=== PATIENT | female | born 1940 | race Caucasian/White ===

== ENCOUNTER 2024-05-19 15:04 | Emergency (ER) | payer BC, SELFPAY ==
--- NOTE | ~2024-05-19 | CT_ITS ---
EXAMINATION: CT HEAD WITHOUT CONTRAST CT CERVICAL SPINE WITHOUT CONTRAST CT FACIAL BONES WITHOUT CONTRAST CLINICAL INFORMATION: Fall COMPARISON: None TECHNIQUE: A noncontrast CT of the head, facial bones and a noncontrast CT of the cervical spine with sagittal and coronal reformats. This CT examination was performed using dose optimization techniques as appropriate, variously including the following: *Automated exposure control *Adjustment of mA and/or kV according to patient size (this includes techniques or standardized protocols for targeted exams where dose is matched to indication/reason for exam; i.e. extremities or head) *Use of iterative reconstruction technique DLP: 995 mGy*cm FINDINGS: There is a small acute subarachnoid and probable parenchymal hemorrhage in the left high parietal region. There is also a small right-sided subdural hematoma, up to 3 mm in thickness, with differing density which may indicate an acute on chronic or subacute blood. No acute territorial infarct. Chronic small vessel ischemic disease of the periventricular white matter. Ventricles and sulci appear normal. Preservation of goldsmith-white matter differentiation. No mass, mass effect, or midline shift. No fracture. Postsurgical changes related to right occipital craniectomy. The mastoid air cells and visualized paranasal sinuses are clear. Right frontal scalp hematoma. No acute facial bone fracture. Mild mucosal thickening in the maxillary sinuses and partial opacification of the ethmoid air cells. The left ostiomeatal unit is opacified. Normal alignment of the cervical spine. No fracture. No prevertebral soft tissue swelling. Moderate to severe degenerative disc disease at C3-C4, C4-C5, and most prominently at C5-C6 where there is a slight retrolisthesis. Prominent degenerative change at the anterior atlantoaxial junction. Severe facet arthrosis throughout the cervical spine. CT/CT cervical spine wo IV con IMPRESSION: 1. There is a small acute subarachnoid and probable subjacent parenchymal contusion/hemorrhage in the left high parietal region. There is also a small right-sided subdural hematoma with differing density which may indicate an acute on chronic or subacute blood. 2. No cervical spine fracture or traumatic subluxation. 3. No acute facial bone fracture. This critical result was discussed with Alejandro CARRINGTON at 6:25 PM on 05/19/2024 and it was ascertained that the content and urgency of the report was understood at the time of direct communication. Electronically signed by: Franki Walls MD 05/19/2024 06:28 PM PRESLEY CALL
--- NOTE | ~2024-05-19 | XR_ITS ---
EXAMINATION: XR SHOULDER, RIGHT CLINICAL INFORMATION: Right shoulder pain COMPARISON: None available. TECHNIQUE: AP, Grashey, and scapular Y views of the right shoulder. FINDINGS: No acute fracture or dislocation. Mild superior subluxation of the humeral head which could indicate an underlying rotator cuff tendon tear. Mild acromioclavicular and glenohumeral osteoarthritis. Lateral subacromial spurring. Partially visualized sternal wires. XR/XR shoulder RT min 2V IMPRESSION: 1. Mild superior subluxation of the humeral head which could indicate an underlying rotator cuff tendon tear. 2. Mild acromioclavicular and glenohumeral osteoarthritis. Lateral subacromial spurring. Electronically signed by: Abner Hernandez MD 05/19/2024 05:04 PM PRESLEY CALL
[2024-05-19 15:23] VITALS: BP 104/67; PULSE 61; RESP 16; TEMP 36.4; O2SAT 96; BMI 23.2
--- NOTE | 2024-05-19 15:51 | ED_ITS ---
HPI - General Adult General Chief complaint: Fall Stated complaint: Fall 5 days ago - bruising both eyes Time Seen by Provider: 05/19/24 19:06 Source: patient, RN notes reviewed and old records reviewed Mode of arrival: ambulatory Limitations: no limitations History of Present Illness ED Provider: Van ÁLVAREZ narrative: 84-year-old female with past medical history significant for atrial fibrillation on Eliquis presents for evaluation of facial bruising. The patient is visiting the area from [place]. She reports that she fell about 5 days ago. She was at a friend's basement carrying boxes down the stairs She reports that she tripped because the boxes shifted in her hands and she fell face first She landed on her right shoulder and struck her face on the steps below. She does not believe she lost consciousness. She denies any pain. She presents to the ER today due to bruising around her left eye which started today. She had not noticed the bruising after the fall She is on Eliquis for AFib her last dose was this morning around 7:30 a.m. Incidentally, the patient reports that she had CT scan of her brain ordered last week either Sunday or Sunday in [place] at [facility]. She did discuss the results with the primary doctor and apparently ?everything was okay. ? The CT scan was performed prior to her fall Related Data Allergies Allergy/AdvReac Type Severity Reaction Status Date / Time dapagliflozin [From [facility]] Allergy Unknown Verified 05/19/24 15:28 Review of Systems 2 Constitutional: Constitutional: Denies body ache(s), Denies chills, Denies fever(s) and Denies headache(s) Eyes: Eyes: Denies blurry vision ENT: Denies vertigo, Denies dizziness and Denies headache(s) Cardiovascular: Cardiovascular: Denies chest pain, Denies chest pain at rest and Denies dyspnea Respiratory: Respiratory: Denies cough and Denies dyspnea Gastrointestinal: Gastrointestinal: Denies abdominal pain, Denies nausea and Denies vomiting Integumentary/Breasts: Skin/Breast: Reports unusual bruising Neurologic: Denies vertigo, Denies dizziness and Denies headache(s) PMFSH Social History Social History Smoked in Last 30 Days: No Use of substances other than those prescribed or required for medical reasons: No Advance Directives: No Advance Directives Information Provided: No Do you have a plan to hurt others: No Plan Physical Exam ED Vital Signs: Vital Signs - 24 hr 05/19/24 15:23 05/19/24 18:47 05/19/24 20:50 Temperature 97.5 F 98.3 F 98.4 F Pulse Rate 61 61 55 Respiratory Rate 16 20 14 Blood Pressure 104/67 147/92 H 138/67 Pulse Oximetry 96 96 97 Oxygen Delivery Method Room Air Room Air Room Air 05/19/24 21:00 05/19/24 21:00 Temperature 98.4 F 98.4 F Pulse Rate 55 55 Respiratory Rate 14 14 Blood Pressure 138/67 138/67 Pulse Oximetry 97 97 Oxygen Delivery Method Room Air BMI result Body Mass Index 23.2 Const General: comfortable, no acute distress, alert and awake Nutritional Appearance: well nourished Orientation/consciousness: patient oriented x3 Eyes Other: Left periorbital ecchymosis without step-offs or deformities. Eyelids: Yes eyelids normal Conjunctivae: conjunctivae normal Sclerae: sclerae normal Corneas: corneas normal Pupils: Equal, round and reactive pupils present EOM: EOMs intact bilaterally Neck Neck: Yes full ROM Resp Effort & Inspection: normal respiratory effort, able to speak in complete sentences and not labored Cardio Rate: regular rate Rhythm: regular rhythm GI Inspection: No distended Palpation (GI): Soft to palpation, not firm, nontender, no guarding and not rigid Skin General skin exam: elasticity normal Neuro General: patient oriented x3 Cranial nerves: Yes CN's II-XII intact bilaterally, Yes Equal, round and reactive pupils present and Yes Bilaterally intact EOM present Cognition (Neuro): normal cognition Extrem Other: There is right anterior shoulder ecchymosis without deformity. The patient has good range of motion to her right shoulder. Course Course Course Narrative: RME: 84-year-old female presents to the ED periorbital ecchymosis and right shoulder pain patient's daughter brought her to the ED. patient states she fell 5 days ago in [place] and then today patient is daughter noticed ecchymosis around the eyes. Patient is on Eliquis. Patient states before she fell earlier in the motion a CT scan which showed possible mini-stroke. Reevaluation(s) Reevaluation #1: Discussed with [facility] transfer line, Dr. Pierce. He recommends transfer to [facility] for a trauma consult. This was discussed with the patient. She remains neurologically intact Time: 20:15 Medications Administered Discontinued Medications Generic Name Dose Route Start Last Admin Trade Name Rodrigue PRN Reason Stop Dose Admin Prothrombin Complex Concent ( 80 mls @ 480 mls/hr 05/19/24 19:29 05/19/24 20:18 Human) 2,000 unit/ IV IV 05/19/24 19:38 Infused Miscellaneous Supplies .Q10M ONE Infusion Medical Decision Making Medical Decision Making [facility] Narrative: 84-year-old female presents for evaluation after a fall that happened 5 days ago with bruising to her face. She denies any headache, she has not had any difficulty with speech or weakness. Her granddaughter is present and reports the patient has been acting appropriately but she was not with her last few days, only today. The patient had a CT scan of her brain, facial bones and cervical spine ordered in triage. She was brought back as her brain CT showed a small left subarachnoid hemorrhage and a small right subdural hematoma. These have different density and there is concern for acute on chronic bleed. I attempted to get records from outside hospital in [place]. I will also discuss with the [facility] transfer line. Given the patient is on Eliquis with an acute subarachnoid bleed, we will start her on Kcentra Differential Diagnosis Differential Diagnoses: The differential diagnosis associated with the presentation includes Intracranial hemorrhage Subarachnoid hemorrhage Subdural hematoma Basilar skull fracture AFib Lab Data [facility] Lab Attestation statement: I reviewed the patient's lab results. No leukocytosis or anemia. Normal platelet count. No significant electrolyte abnormality 05/19/24 17:56 05/19/24 19:10 Labs: Lab Results 05/19/24 05/19/24 05/19/24 Range/Units 17:56 19:10 19:10 WBC 5.2 (4.8-10.8) X10*3/uL RBC 4.41 (4.20-5.50) X10*6/uL Hgb 13.6 (12.0-16.0) g/dl Hct 41.1 (37.0-47.0) % MCV 93.2 (80.0-98.0) fL MCH 30.8 (27.0-33.0) pg MCHC 33.1 (31.0-35.0) g/dl RDW 13.7 (11.0-16.0) % Plt Count 221 (160-400) X10*3/uL MPV 9.9 (9.4-12.3) fL Immature Gran % (Auto) 0.2 (0.0-0.4) % Neut % (Auto) 66.5 (45-73) % Lymph % (Auto) 11.4 L (20-40) % [place] % (Auto) 18.0 H (2-11) % Eos % (Auto) 3.1 (0-4) % Baso % (Auto) 0.8 (0-2) % Lymph # (Auto) 0.6 L (1.2-4.9) X10*3/uL [place] # (Auto) 0.9 (0.1-1.2) X10*3/uL Eos # (Auto) 0.2 (0.0-0.4) X10*3/uL Baso # (Auto) 0.0 (0.0-0.2) X10*3/uL Abs Immat Gran (auto) 0.01 (0.00-0.03) X10*3/uL Absolute Neuts (auto) 3.5 (2.0-8.3) x10*3/uL Absolute Nucleated RBC 0.000 (0.0-0.012) X10*3/uL Nucleated RBC % (auto) 0.0 (0.0-0.2) /100WBC PT 11.1 (10.9-12.4) SEC INR 1.0 (0.9-1.1) APTT 36.0 (26.0-36.8) SEC Sodium 143 143 (135-145) mmol/L Potassium 4.0 (3.3-5.1) mmol/L Chloride (96-108) mmol/L Carbon Dioxide (22-29) mmol/L Anion Gap (12-20) BUN (9-16) mg/dL Creatinine (0.5-1.4) mg/dL Estim Creat Clear Calc Estimated GFR Random Glucose (60-115) mg/dL Calcium (8.4-10.2) mg/dL Total Bilirubin (0.0-1.0) mg/dL AST (5-31) U/L ALT (0-31) U/L Alkaline Phosphatase (39-117) U/L Total Protein (6.5-8.0) g/dL Albumin (3.5-5.0) g/dL 05/19/24 05/19/24 05/19/24 Range/Units 19:10 19:10 19:10 WBC (4.8-10.8) X10*3/uL RBC (4.20-5.50) X10*6/uL Hgb (12.0-16.0) g/dl Hct (37.0-47.0) % MCV (80.0-98.0) fL MCH (27.0-33.0) pg MCHC (31.0-35.0) g/dl RDW (11.0-16.0) % Plt Count (160-400) X10*3/uL MPV (9.4-12.3) fL Immature Gran % (Auto) (0.0-0.4) % Neut % (Auto) (45-73) % Lymph % (Auto) (20-40) % [place] % (Auto) (2-11) % Eos % (Auto) (0-4) % Baso % (Auto) (0-2) % Lymph # (Auto) (1.2-4.9) X10*3/uL [place] # (Auto) (0.1-1.2) X10*3/uL Eos # (Auto) (0.0-0.4) X10*3/uL Baso # (Auto) (0.0-0.2) X10*3/uL Abs Immat Gran (auto) (0.00-0.03) X10*3/uL Absolute Neuts (auto) (2.0-8.3) x10*3/uL Absolute Nucleated RBC (0.0-0.012) X10*3/uL Nucleated RBC % (auto) (0.0-0.2) /100WBC PT (10.9-12.4) SEC INR (0.9-1.1) APTT (26.0-36.8) SEC Sodium (135-145) mmol/L Potassium 4.1 (3.3-5.1) mmol/L Chloride 109 H 109 H (96-108) mmol/L Carbon Dioxide 28 28 (22-29) mmol/L Anion Gap 10 L (12-20) BUN (9-16) mg/dL Creatinine (0.5-1.4) mg/dL Estim Creat Clear Calc Estimated GFR Random Glucose (60-115) mg/dL Calcium (8.4-10.2) mg/dL Total Bilirubin (0.0-1.0) mg/dL AST (5-31) U/L ALT (0-31) U/L Alkaline Phosphatase (39-117) U/L Total Protein (6.5-8.0) g/dL Albumin (3.5-5.0) g/dL 05/19/24 05/19/24 05/19/24 Range/Units 19:10 19:10 19:10 WBC (4.8-10.8) X10*3/uL RBC (4.20-5.50) X10*6/uL Hgb (12.0-16.0) g/dl Hct (37.0-47.0) % MCV (80.0-98.0) fL MCH (27.0-33.0) pg MCHC (31.0-35.0) g/dl RDW (11.0-16.0) % Plt Count (160-400) X10*3/uL MPV (9.4-12.3) fL Immature Gran % (Auto) (0.0-0.4) % Neut % (Auto) (45-73) % Lymph % (Auto) (20-40) % [place] % (Auto) (2-11) % Eos % (Auto) (0-4) % Baso % (Auto) (0-2) % Lymph # (Auto) (1.2-4.9) X10*3/uL [place] # (Auto) (0.1-1.2) X10*3/uL Eos # (Auto) (0.0-0.4) X10*3/uL Baso # (Auto) (0.0-0.2) X10*3/uL Abs Immat Gran (auto) (0.00-0.03) X10*3/uL Absolute Neuts (auto) (2.0-8.3) x10*3/uL Absolute Nucleated RBC (0.0-0.012) X10*3/uL Nucleated RBC % (auto) (0.0-0.2) /100WBC PT (10.9-12.4) SEC INR (0.9-1.1) APTT (26.0-36.8) SEC Sodium (135-145) mmol/L Potassium (3.3-5.1) mmol/L Chloride (96-108) mmol/L Carbon Dioxide (22-29) mmol/L Anion Gap 10 L (12-20) BUN 23 H 23 H (9-16) mg/dL Creatinine 0.89 0.87 (0.5-1.4) mg/dL Estim Creat Clear Calc 33.7 Estimated GFR Random Glucose (60-115) mg/dL Calcium (8.4-10.2) mg/dL Total Bilirubin (0.0-1.0) mg/dL AST (5-31) U/L ALT (0-31) U/L Alkaline Phosphatase (39-117) U/L Total Protein (6.5-8.0) g/dL Albumin (3.5-5.0) g/dL 05/19/24 05/19/24 05/19/24 Range/Units 19:10 19:10 19:10 WBC (4.8-10.8) X10*3/uL RBC (4.20-5.50) X10*6/uL Hgb (12.0-16.0) g/dl Hct (37.0-47.0) % MCV (80.0-98.0) fL MCH (27.0-33.0) pg MCHC (31.0-35.0) g/dl RDW (11.0-16.0) % Plt Count (160-400) X10*3/uL MPV (9.4-12.3) fL Immature Gran % (Auto) (0.0-0.4) % Neut % (Auto) (45-73) % Lymph % (Auto) (20-40) % [place] % (Auto) (2-11) % Eos % (Auto) (0-4) % Baso % (Auto) (0-2) % Lymph # (Auto) (1.2-4.9) X10*3/uL [place] # (Auto) (0.1-1.2) X10*3/uL Eos # (Auto) (0.0-0.4) X10*3/uL Baso # (Auto) (0.0-0.2) X10*3/uL Abs Immat Gran (auto) (0.00-0.03) X10*3/uL Absolute Neuts (auto) (2.0-8.3) x10*3/uL Absolute Nucleated RBC (0.0-0.012) X10*3/uL Nucleated RBC % (auto) (0.0-0.2) /100WBC PT (10.9-12.4) SEC INR (0.9-1.1) APTT (26.0-36.8) SEC Sodium (135-145) mmol/L Potassium (3.3-5.1) mmol/L Chloride (96-108) mmol/L Carbon Dioxide (22-29) mmol/L Anion Gap (12-20) BUN (9-16) mg/dL Creatinine (0.5-1.4) mg/dL Estim Creat Clear Calc 34.5 Estimated GFR > 60 > 60 Random Glucose 107 110 (60-115) mg/dL Calcium 9.2 (8.4-10.2) mg/dL Total Bilirubin (0.0-1.0) mg/dL AST (5-31) U/L ALT (0-31) U/L Alkaline Phosphatase (39-117) U/L Total Protein (6.5-8.0) g/dL Albumin (3.5-5.0) g/dL 05/19/24 05/19/24 05/19/24 Range/Units 19:10 19:10 19:10 WBC (4.8-10.8) X10*3/uL RBC (4.20-5.50) X10*6/uL Hgb (12.0-16.0) g/dl Hct (37.0-47.0) % MCV (80.0-98.0) fL MCH (27.0-33.0) pg MCHC (31.0-35.0) g/dl RDW (11.0-16.0) % Plt Count (160-400) X10*3/uL MPV (9.4-12.3) fL Immature Gran % (Auto) (0.0-0.4) % Neut % (Auto) (45-73) % Lymph % (Auto) (20-40) % [place] % (Auto) (2-11) % Eos % (Auto) (0-4) % Baso % (Auto) (0-2) % Lymph # (Auto) (1.2-4.9) X10*3/uL [place] # (Auto) (0.1-1.2) X10*3/uL Eos # (Auto) (0.0-0.4) X10*3/uL Baso # (Auto) (0.0-0.2) X10*3/uL Abs Immat Gran (auto) (0.00-0.03) X10*3/uL Absolute Neuts (auto) (2.0-8.3) x10*3/uL Absolute Nucleated RBC (0.0-0.012) X10*3/uL Nucleated RBC % (auto) (0.0-0.2) /100WBC PT (10.9-12.4) SEC INR (0.9-1.1) APTT (26.0-36.8) SEC Sodium (135-145) mmol/L Potassium (3.3-5.1) mmol/L Chloride (96-108) mmol/L Carbon Dioxide (22-29) mmol/L Anion Gap (12-20) BUN (9-16) mg/dL Creatinine (0.5-1.4) mg/dL Estim Creat Clear Calc Estimated GFR Random Glucose (60-115) mg/dL Calcium 9.4 (8.4-10.2) mg/dL Total Bilirubin 0.4 0.4 (0.0-1.0) mg/dL AST 28 29 (5-31) U/L ALT 24 (0-31) U/L Alkaline Phosphatase (39-117) U/L Total Protein (6.5-8.0) g/dL Albumin (3.5-5.0) g/dL 05/19/24 05/19/24 05/19/24 Range/Units 19:10 19:10 19:10 WBC (4.8-10.8) X10*3/uL RBC (4.20-5.50) X10*6/uL Hgb (12.0-16.0) g/dl Hct (37.0-47.0) % MCV (80.0-98.0) fL MCH (27.0-33.0) pg MCHC (31.0-35.0) g/dl RDW (11.0-16.0) % Plt Count (160-400) X10*3/uL MPV (9.4-12.3) fL Immature Gran % (Auto) (0.0-0.4) % Neut % (Auto) (45-73) % Lymph % (Auto) (20-40) % [place] % (Auto) (2-11) % Eos % (Auto) (0-4) % Baso % (Auto) (0-2) % Lymph # (Auto) (1.2-4.9) X10*3/uL [place] # (Auto) (0.1-1.2) X10*3/uL Eos # (Auto) (0.0-0.4) X10*3/uL Baso # (Auto) (0.0-0.2) X10*3/uL Abs Immat Gran (auto) (0.00-0.03) X10*3/uL Absolute Neuts (auto) (2.0-8.3) x10*3/uL Absolute Nucleated RBC (0.0-0.012) X10*3/uL Nucleated RBC % (auto) (0.0-0.2) /100WBC PT (10.9-12.4) SEC INR (0.9-1.1) APTT (26.0-36.8) SEC Sodium (135-145) mmol/L Potassium (3.3-5.1) mmol/L Chloride (96-108) mmol/L Carbon Dioxide (22-29) mmol/L Anion Gap (12-20) BUN (9-16) mg/dL Creatinine (0.5-1.4) mg/dL Estim Creat Clear Calc Estimated GFR Random Glucose (60-115) mg/dL Calcium (8.4-10.2) mg/dL Total Bilirubin (0.0-1.0) mg/dL AST (5-31) U/L ALT 25 (0-31) U/L Alkaline Phosphatase 99 101 (39-117) U/L Total Protein 6.3 L 6.3 L (6.5-8.0) g/dL Albumin 3.7 (3.5-5.0) g/dL // Range/Units 19:10 WBC (4.8-10.8) X10*3/uL RBC (4.20-5.50) X10*6/uL Hgb (12.0-16.0) g/dl Hct (37.0-47.0) % MCV (80.0-98.0) fL MCH (27.0-33.0) pg MCHC (31.0-35.0) g/dl RDW (11.0-16.0) % Plt Count (160-400) X10*3/uL MPV (9.4-12.3) fL Immature Gran % (Auto) (0.0-0.4) % Neut % (Auto) (45-73) % Lymph % (Auto) (20-40) % [place] % (Auto) (2-11) % Eos % (Auto) (0-4) % Baso % (Auto) (0-2) % Lymph # (Auto) (1.2-4.9) X10*3/uL [place] # (Auto) (0.1-1.2) X10*3/uL Eos # (Auto) (0.0-0.4) X10*3/uL Baso # (Auto) (0.0-0.2) X10*3/uL Abs Immat Gran (auto) (0.00-0.03) X10*3/uL Absolute Neuts (auto) (2.0-8.3) x10*3/uL Absolute Nucleated RBC (0.0-0.012) X10*3/uL Nucleated RBC % (auto) (0.0-0.2) /100WBC PT (10.9-12.4) SEC INR (0.9-1.1) APTT (26.0-36.8) SEC Sodium (135-145) mmol/L Potassium (3.3-5.1) mmol/L Chloride (96-108) mmol/L Carbon Dioxide (22-29) mmol/L Anion Gap (12-20) BUN (9-16) mg/dL Creatinine (0.5-1.4) mg/dL Estim Creat Clear Calc Estimated GFR Random Glucose (60-115) mg/dL Calcium (8.4-10.2) mg/dL Total Bilirubin (0.0-1.0) mg/dL AST (5-31) U/L ALT (0-31) U/L Alkaline Phosphatase (39-117) U/L Total Protein (6.5-8.0) g/dL Albumin 3.7 (3.5-5.0) g/dL Independent Interpretation I performed an independent interpretation of an: CT Scan (Agree with Radiology interpretation) Radiology Impression Discussion of test interpretation with radiology: I have reviewed the radiologist's reading. Radiologist Impression: FINDINGS: There is a small acute subarachnoid and probable parenchymal hemorrhage in the left high parietal region. There is also a small right-sided subdural hematoma, up to 3 mm in thickness, with differing density which may indicate an acute on chronic or subacute blood. No acute territorial infarct. Chronic small vessel ischemic disease of the periventricular white matter. Ventricles and sulci appear normal. Preservation of goldsmith-white matter differentiation. No mass, mass effect, or midline shift. No fracture. Postsurgical changes related to right occipital craniectomy. The mastoid air cells and visualized paranasal sinuses are clear. Right frontal scalp hematoma. No acute facial bone fracture. Mild mucosal thickening in the maxillary sinuses and partial opacification of the ethmoid air cells. The left ostiomeatal unit is opacified. Normal alignment of the cervical spine. No fracture. No prevertebral soft tissue swelling. Moderate to severe degenerative disc disease at C3-C4, C4-C5, and most prominently at C5-C6 where there is a slight retrolisthesis. Prominent degenerative change at the anterior atlantoaxial junction. Severe facet arthrosis throughout the cervical spine. CT/CT facial bones wo IV con IMPRESSION: 1. There is a small acute subarachnoid and probable subjacent parenchymal contusion/hemorrhage in the left high parietal region. There is also a small right-sided subdural hematoma with differing density which may indicate an acute on chronic or subacute blood. 2. No cervical spine fracture or traumatic subluxation. 3. No acute facial bone fracture. This critical result was discussed with Alejandro CARRINGTON at 6:25 PM on 05/19/2024 and it was ascertained that the content and urgency of the report was understood at the time of direct communication. Electronically signed by: Franki Walls MD 05/19/2024 06:28 PM EST RP FINDINGS: No acute fracture or dislocation. Mild superior subluxation of the humeral head which could indicate an underlying rotator cuff tendon tear. Mild acromioclavicular and glenohumeral osteoarthritis. Lateral subacromial spurring. Partially visualized sternal wires. XR/XR shoulder RT min 2V IMPRESSION: 1. Mild superior subluxation of the humeral head which could indicate an underlying rotator cuff tendon tear. 2. Mild acromioclavicular and glenohumeral osteoarthritis. Lateral subacromial spurring. Electronically signed by: Abner Hernandez MD 05/19/2024 05:04 PM EST RP Critical Care Time Critical Care Time Critical Care Time: Yes Total Critical Care Time: 35 Attestation: 84-year-old female presents for evaluation of facial bruising after a fall. She is on Eliquis for AFib. She was found to have subarachnoid and subdural hemorrhage. She required neuro evaluation and consultation with outside facility. Discharge Plan Discharge Clinical Impression: Subarachnoid hemorrhage, Acute subdural hematoma Patient Disposition: [facility] Transfer Details: [facility] ED Interventions: Acute Care Transfer Worksheet (ED) Last Done: 05/19/24 21:00 Discharge Date/Time: 05/19/24 21:00 Print Language: Serbian
[2024-05-19 18:01] LABS: MANUAL DIFF FLAG NO
[2024-05-19 18:04] LABS: Basophils Percent Auto 0.8 % (0-2); Eosinophils Absolute Auto 0.2 X10*3/uL (0.0-0.4); Eosinophils Percent Auto 3.1 % (0-4); Hematocrit 41.1 % (37.0-47.0); Hemoglobin 13.6 g/dl (12.0-16.0); Imm Gran Abs Auto 0.01 X10*3/uL (0.00-0.03); Imm Gran Pct Auto 0.2 % (0.0-0.4); Lymphocytes Absolute Auto 0.6 X10*3/uL (1.2-4.9); Lymphocytes Percent Auto 11.4 % (20-40); Mean Corpuscular HGB Conc 33.1 g/dl (31.0-35.0); Mean Corpuscular Hemoglobin 30.8 pg (27.0-33.0); Mean Corpuscular Volume 93.2 fL (80.0-98.0); Mean Platelet Volume 9.9 fL (9.4-12.3); Monocytes Absolute Auto 0.9 X10*3/uL (0.1-1.2); Neutrophils Absolute Auto 3.5 x10*3/uL (2.0-8.3); Neutrophils Percent Auto 66.5 % (45-73); Platelet Count 221 X10*3/uL (160-400); Red Blood Count 4.41 X10*6/uL (4.20-5.50); Red Cell Distribution Width 13.7 % (11.0-16.0); White Blood Count 5.2 X10*3/uL (4.8-10.8)
[2024-05-19 18:16] LABS: Prothrombin Time 11.1 SEC (10.9-12.4)
[2024-05-19 18:47] VITALS: BP 147/92; PULSE 61; RESP 20; TEMP 36.8; O2SAT 96
[2024-05-19 19:33] LABS: Alanine Aminotransferase 24 U/L (0-31); Albumin Level 3.7 g/dL (3.5-5.0); Alkaline Phosphatase 99 U/L (39-117); Anion Gap 10 (12-20); Aspartate Amino Transferase 28 U/L (5-31); Bilirubin Total 0.4 mg/dL (0.0-1.0); Blood Urea Nitrogen 23 mg/dL (9-16); Calcium 9.2 mg/dL (8.4-10.2); Carbon Dioxide 28 mmol/L (22-29); Chloride 109 mmol/L (96-108); Creatinine Clr Calc Pharmacy 33.7; Estimated Glomerular Filt Rate > 60; Glucose Random 107 mg/dL (60-115); Sodium 143 mmol/L (135-145); Total Protein 6.3 g/dL (6.5-8.0)
[2024-05-19 19:34] LABS: Alanine Aminotransferase 25 U/L (0-31); Albumin Level 3.7 g/dL (3.5-5.0); Alkaline Phosphatase 101 U/L (39-117); Anion Gap 10 (12-20); Aspartate Amino Transferase 29 U/L (5-31); Bilirubin Total 0.4 mg/dL (0.0-1.0); Blood Urea Nitrogen 23 mg/dL (9-16); Calcium 9.4 mg/dL (8.4-10.2); Carbon Dioxide 28 mmol/L (22-29); Chloride 109 mmol/L (96-108); Creatinine Clr Calc Pharmacy 34.5; Estimated Glomerular Filt Rate > 60; Glucose Random 110 mg/dL (60-115); Potassium 4.1 mmol/L (3.3-5.1); Sodium 143 mmol/L (135-145); Total Protein 6.3 g/dL (6.5-8.0)
--- NOTE | 2024-05-19 19:47 | PC.NURSE ---
Pharmacy mixing [facility]. Upon delivery to ED, this RN will administer.
[2024-05-19] MEDS: Hum Prothrombin Cplx(PCC)4Fact 2,000 UNIT in Container,Empty 0 ML 480 UNIT IV (20:07)
--- NOTE | 2024-05-19 20:41 | PC.NURSE ---
Plan to transfer to [facility] ED, accepting MD: Dr. Pierce. KCentra administered as ordered. 20g IV access established in left AC by this RN. Patient denies complaints at this time. Calm/cooperative, aware & agreeable with plan of care and transfer. Care ongoing by this RN & Nubia (workplace relations adviser).
[2024-05-19 20:50] VITALS: BP 138/67; PULSE 55; RESP 14; TEMP 36.9; O2SAT 97
[2024-05-19 21:00] VITALS: BP 138/67; PULSE 55; RESP 14; TEMP 36.9; O2SAT 97
--- NOTE | 2024-05-19 21:17 | PC.NURSE ---
Report given to LOWELL Varela at [facility] ED. Transferred via [facility]. Family to meet the patient at [facility] ED. Accepting MD: Dr. Pierce.
== END 2024-05-19 21:00 | disposition short-term general hospital (02) ==
PROVIDERS: Physician Assistant; Emergency Provider Emergency Medicine
DX: S06.6X0A Traumatic subarachnoid hemorrhage without loss of consciousness, initial encounter (principal); S06.5X0A Traumatic subdural hemorrhage without loss of consciousness, initial encounter; W10.8XXA Fall (on) (from) other stairs and steps, initial encounter; Y93.E9 Activity, other interior property and clothing maintenance; Y92.008 Other place in unspecified non-institutional (private) residence as the place of occurrence of the external cause; Y99.9 Unspecified external cause status; I48.91 Unspecified atrial fibrillation; Z79.01 Long term (current) use of anticoagulants
CPT/HCPCS: 36415; 70450; 70486; 72125; 73030; 80053; 85025; 85610; 85730; 96374; 99285; J7168